=== PATIENT | female | born 1955 | race Caucasian/White ===

== ENCOUNTER 2023-08-23 16:20 | Emergency (ER) | payer OTHER, SELFPAY ==
[2023-08-23 16:24] VITALS: BP 132/78
[2023-08-23 16:49] LABS: % Basophils 0.7 % (0-2); % Eosinophils 1.6 % (0-6); % Immature Granulocytes 0.4 % (0-0.5); % Lymphocytes 30.3 % (20.5-51.1); % Monocytes 8.6 % (1.7-9.3); % Neutrophils 58.4 % (42.2-75.2); Absolute Basophils 0.1 10^3/uL (0-0.2); Absolute Eosinophils 0.1 10^3/uL (0-0.7); Absolute Lymphocytes 2.3 10^3/uL (1.2-3.4); Absolute Monocytes 0.6 10^3/uL (0.1-0.6); Absolute Neutrophils 4.4 10^3/uL (1.4-6.5); Hematocrit 38.2 % (37.0-47.0); Hemoglobin 12.5 g/dL (12.0-16.0); Mean Corp Hgb Conc. 32.7 g/dL (33.0-37.0); Mean Corpuscular Hgb 26.6 pg (27.0-31.0); Mean Corpuscular Volume 81.3 fL (81.0-99.0); Mean Platelet Volume 10.3 fL (7.4-10.4); Nucleated Red Blood Cells % 0 %; Platelet Count 334 10^3/uL (130-400); Red Cell Dist. Width 13.9 % (11.5-14.5); White Blood Cell Count 7.5 10^3/uL (4.8-10.8)
[2023-08-23 17:06] LABS: ALT (SGPT) 21 U/L (0-35); AST (SGOT) 29 U/L (14-36); Albumin 4.3 g/dl (3.5-5.0); Alkaline Phosphatase 129 U/L (38-126); Blood Urea Nitrogen 25 mg/dl (7-17); Calcium 9.8 mg/dl (8.4-10.2); Carbon Dioxide 21 mmol/L (22-30); Chloride 107 mmol/L (98-107); Glucose 93 mg/dl (70-99); Potassium 3.7 mmol/L (3.5-5.1); Sodium 136 mmol/L (135-145); Total Bilirubin 0.4 mg/dl (0.2-1.3); Total Protein 7.1 g/dl (6.3-8.2); eGFR 54.06
--- NOTE | 2023-08-23 18:52 | ED.GENMED ---
History of Present Illness
General
Chief Complaint: Weakness
Time Seen by Provider: 08/23/23 18:42
Travel History
Have you had any contact with someone who has COVID-19?: No
Do you have any symptoms of coronavirus? Fever > 100 degrees, chills, cough, shortness of breath, sore throat, loss of taste or smell, muscle aches, or headache?: No
History of Present Illness
History of Present Illness:
68-year-old female with history of dementia, anxiety, and depression presents to the emergency department from [facility] with her care provider complaining of general fatigue and 'feeling off'. States that she felt a little uneasy and
dizzy this morning, took a nap in the afternoon and felt very weak and shaky from that point on. Denies any pain, fever, chills, night sweats, coughing, shortness of breath, or chest pain. No recent illnesses of any kind. Denies any recent
medication changes. She has had a history of medication mixups however states she uses it daily pill container and has not overdone or underdone her medications.
Review of Systems
Review of Systems
Allergies reviewed?: Yes
All Other Systems: ROS reviewed and negative except as documented in HPI and ROS
Phy Exam
Physical Exam
Physical Exam:
GEN: Well appearing, NAD, WDWN
HEENT: Oral mucosa moist, no scleral icterus, no nasal congestion
Cardiac: Regular rate and rhythm, no murmur
Lung: No respiratory distress, no tachypnea lungs clear to auscultation bilaterally
MSK: No gross deformity or injuries
Skin: Good color, no pallor or jaundice, no rashes
Neuro: AO x3; CN II-XII grossly intact. BUE strength 5/5 in all ojeda, sensation intact and symmetric. BLE strength 5/5 in all ojeda, sensation intact and symmetric. Generalized extremity tremors noted at rest
Psych: Calm, cooperative
Course
Orders/Labs/Results
Orders:
Orders
08/23/23 16:33
Complete Blood Count/With Diff Urgent
Comprehensive Metabolic Panel Urgent
TSH Reflex To Free T4 Urgent
Comment: ADD ON
08/23/23 18:52
Add On- LAB Urgent
Tests Added?: tsh w reflex
Electrocardiogram (*1) Urgent
Reason for Study: Fatigue / Weakness
EKG- Treatment ONCE
08/23/23 20:08
Urinalysis Reflex To Culture Urgent
Date Specimen was Collected: 08/23/23
Time Specimen was Collected: 20:08
Urine Microscopic Reflex Cult Urgent
Urine Culture Urgent
HARDY Source: U
Specimen Description:
Date Specimen was Collected: 08/23/23
Time Specimen was Collected: 20:08
Abnormal Lab Results
08/23/23 08/23/23
16:33 20:08
MCH 26.6 L pg
(27.0-31.0)
MCHC 32.7 L g/dL
(33.0-37.0)
Carbon Dioxide 21 L mmol/L
(22-30)
BUN 25 H mg/dl
(7-17)
Creatinine 1.1 H mg/dL
(0.6-1.0)
Alkaline Phosphatase 129 H U/L
(38-126)
Urine Bilirubin 1+ A
(Negative)
Leukocyte Esterase Rfl 2+ A
(Negative)
08/23/23 16:33
08/23/23 16:33
Vital Signs
Initial and Last Documented VS:
Initial Vital Signs
Temp Pulse Resp BP Pulse Ox
98.1 F 92 16 132/78 98
08/23/23 16:24 08/23/23 16:24 08/23/23 16:24 08/23/23 16:24 08/23/23 16:24
Last Documented Vital Signs
Temp Pulse Resp BP Pulse Ox
98.1 F 84 18 132/78 99
08/23/23 16:24 08/23/23 19:15 08/23/23 19:15 08/23/23 16:24 08/23/23 20:00
MDM/Problems Addressed
MDM/Problems Addressed:
68-year-old female presents with generalized weakness and global tremors. Her labs and urinalysis are unremarkable. Unclear etiology to the patient's symptoms. She is clinically well-appearing and has no evidence for cardiac dysrhythmia on EKG.
Diffuse T wave flattening is noted however the patient has no chest pain or shortness of breath. Recommend she continue to follow her symptoms at home and monitor for any worsening/fevers
*Critical Care Note
Total Time (30-74mins, 75-104mins- exclusive of procedures): Not Applicable
ED Attending Note
-
Portions of this chart may have been created with voice recognition software.� Occasional wrong word or��sound alike� substitutions may have occurred due to the inherent limitations of voice recognition software.
Discharge Plan
Departure
Patient Disposition: Home (Routine Discharge)
Date of Disposition: 08/23/23
Time of Disposition: 20:39
Patient with high blood pressure during this ER visit?: No
Discharge Problem:
Malaise and fatigue
Instructions: Generalized Weakness (DC)
Referrals:
UNKNOWN - PT DOES,NOT KNOW [Family Provider] -
Interventions
Interventions:
*Risk Screen - Suicide Last Done: 08/23/23 19:16
*General Assessment Last Done: 08/23/23 19:16
*Neglect/Abuse Screening Last Done: 08/23/23 19:16
ED- Fall Risk Assessment Last Done: 08/23/23 19:16
*ED COVID-19 Vaccine History Last Done: 08/23/23 16:24
*Nursing Disposition Last Done: 08/23/23 20:50
ED- Cardiac Assessment Last Done: 08/23/23 19:16
ED- Neurological Assessment Last Done: 08/23/23 19:16
ED- Pulmonary Assessment Last Done: 08/23/23 19:16
Discharge Date and Time
Discharge Date/Time: 08/23/23 20:50
[2023-08-23 19:12] VITALS: BMI 23.4
[2023-08-23 20:15] LABS: Urine Albumin Trace (Neg - Trace); Urine Bilirubin 1+ (Negative); Urine Character Clear (Clear); Urine Color Yellow; Urine Glucose Negative (Negative); Urine Ketone Negative (Negative); Urine Leukocyte 2+ (Negative); Urine Nitrite Negative (Negative); Urine Occult Blood Negative (Negative); Urine Urobilinogen Negative (Neg - 1+)
[2023-08-23 20:26] LABS: Urine Waxy Cast 0-2 /LPF
[2023-08-23 20:27] LABS: Urine Red Blood Cell None Seen /HPF (0-2)
[2023-08-23 22:03] LABS: TSH Reflex To Free T4 2.55 uIU/ml (0.47-4.68)
== END 2023-08-23 20:50 | disposition home or self-care (01) ==
LOC: EMR 16:20
PROVIDERS: Physician Assistant; EMERGENCY PHYSICIAN Emergency Medicine
DX: R53.83 Other fatigue (principal); F03.90 Unspecified dementia, unspecified severity, without behavioral disturbance, psychotic disturbance, mood disturbance, and anxiety; F41.9 Anxiety disorder, unspecified; F32.A Depression, unspecified
CPT/HCPCS: 99284; 80053; 81003; 81015; 84443; 85025; 87086; 93005

== ENCOUNTER → 2024-05-09 10:11 | Outpatient (REF) | payer OTHER, SELFPAY ==
[2024-05-09 10:51] LABS: % Basophils 0.8 % (0-2); % Eosinophils 2.3 % (0-6); % Immature Granulocytes 0.4 % (0-0.5); % Lymphocytes 35.3 % (20.5-51.1); % Monocytes 11.4 % (1.7-9.3); % Neutrophils 49.8 % (42.2-75.2); Absolute Basophils 0.1 10^3/uL (0-0.2); Absolute Eosinophils 0.2 10^3/uL (0-0.7); Absolute Lymphocytes 2.8 10^3/uL (1.2-3.4); Absolute Monocytes 0.9 10^3/uL (0.1-0.6); Absolute Neutrophils 3.9 10^3/uL (1.4-6.5); Hematocrit 41.3 % (37.0-47.0); Hemoglobin 13.4 g/dL (12.0-16.0); Mean Corp Hgb Conc. 32.4 g/dL (33.0-37.0); Mean Corpuscular Hgb 27.4 pg (27.0-31.0); Mean Corpuscular Volume 84.5 fL (81.0-99.0); Mean Platelet Volume 11.2 fL (7.4-10.4); Nucleated Red Blood Cells % 0 %; Platelet Count 333 10^3/uL (130-400); Red Blood Cell Count 4.89 10^6/uL (4.20-5.40); Red Cell Dist. Width 13.4 % (11.5-14.5); White Blood Cell Count 7.8 10^3/uL (4.8-10.8)
[2024-05-09 11:08] LABS: ALT (SGPT) 21 U/L (0-35); AST (SGOT) 101 U/L (14-36); Albumin 4.3 g/dl (3.5-5.0); Alkaline Phosphatase 129 U/L (38-126); Blood Urea Nitrogen 22 mg/dl (7-17); Calcium 9.4 mg/dl (8.4-10.2); Carbon Dioxide 26 mmol/L (22-30); Chloride 104 mmol/L (98-107); Glucose 90 mg/dl (70-99); HDL Cholesterol 56 mg/dl; LDL Cholesterol, Calculated 115 mg/dl; Potassium 4.2 mmol/L (3.5-5.1); Sodium 141 mmol/L (135-145); Total Bilirubin 0.3 mg/dl (0.2-1.3); Total Cholesterol 209 mg/dl (50-199); Triglyceride 192 mg/dl (10-149); Very Low Density Lipoprotein 38 mg/dl (0-30); eGFR 54.06
[2024-05-09 11:37] LABS: TSH Reflex To Free T4 4.84 uIU/ml (0.47-4.68)
== END ==
LOC: OLABWIL 10:11
DX: R53.83 Other fatigue (principal)
CPT/HCPCS: 36415; 80053; 80061; 84439; 84443; 85025